=== PATIENT | male | born 1970 | race Caucasian/White ===

== ENCOUNTER → 2024-07-04 10:17 | Outpatient (REF) | payer SELFPAY | LOC: HWRAD 10:17 | PROVIDERS: ATTENDING PHYSICIAN Internal Medicine | DX: E78.2 Mixed hyperlipidemia (principal) | CPT/HCPCS: 75571 ==

== ENCOUNTER → 2024-07-05 08:05 | Outpatient (REF) | payer OTHER, SELFPAY | LOC: RAD 08:05 | PROVIDERS: ATTENDING PHYSICIAN Internal Medicine | DX: E78.2 Mixed hyperlipidemia (principal); R16.1 Splenomegaly, not elsewhere classified | CPT/HCPCS: 76700 ==

== ENCOUNTER 2024-07-25 13:47 | Emergency (ER) | payer OTHER, SELFPAY ==
[2024-07-25 13:54] VITALS: BP 165/105
[2024-07-25 14:11] LABS: % Basophils 0.7 % (0-2); % Eosinophils 1.1 % (0-6); % Immature Granulocytes 0.3 % (0-0.5); % Lymphocytes 32.7 % (20.5-51.1); % Monocytes 6.6 % (1.7-9.3); % Neutrophils 58.6 % (42.2-75.2); Absolute Basophils 0.1 10^3/uL (0-0.2); Absolute Eosinophils 0.1 10^3/uL (0-0.7); Absolute Lymphocytes 2.3 10^3/uL (1.2-3.4); Absolute Monocytes 0.5 10^3/uL (0.1-0.6); Absolute Neutrophils 4.2 10^3/uL (1.4-6.5); Hematocrit 47.1 % (39.0-52.0); Hemoglobin 16.1 g/dL (13.0-18.0); Mean Corp Hgb Conc. 34.2 g/dL (33.0-37.0); Mean Corpuscular Hgb 30.5 pg (27.0-31.0); Mean Corpuscular Volume 89.2 fL (80.0-94.0); Mean Platelet Volume 9.2 fL (7.4-10.4); Nucleated Red Blood Cells % 0 % (-); Platelet Count 242 10^3/uL (130-400); Red Blood Cell Count 5.28 10^6/uL (4.70-6.10); Red Cell Dist. Width 11.9 % (11.5-14.5); White Blood Cell Count 7.1 10^3/uL (4.8-10.8)
[2024-07-25 14:32] LABS: ALT (SGPT) 31 U/L (0-50); AST (SGOT) 27 U/L (17-59); Albumin 4.7 g/dl (3.5-5.0); Alkaline Phosphatase 53 U/L (38-126); Blood Urea Nitrogen 18 mg/dl (9-20); Calcium 9.4 mg/dl (8.4-10.2); Carbon Dioxide 22 mmol/L (22-30); Chloride 106 mmol/L (98-107); Glucose 99 mg/dl (70-99); Potassium 4.6 mmol/L (3.5-5.1); Sodium 142 mmol/L (135-145); Total Bilirubin 0.7 mg/dl (0.2-1.3); Total Protein 7.2 g/dl (6.3-8.2); eGFR > 60.00
[2024-07-25 14:34] LABS: Troponin I < 0.012 ng/ml
[2024-07-25 15:39] VITALS: BMI 34.8
[2024-07-25 15:40] VITALS: BP 150/95
[2024-07-25 16:00] VITALS: BP 125/98
[2024-07-25 17:00] VITALS: BP 138/101
[2024-07-25 18:00] VITALS: BP 122/81
[2024-07-25 18:03] LABS: Troponin I < 0.012 ng/ml
--- NOTE | 2024-07-25 18:28 | ED.GENMED ---
History of Present Illness
General
Chief Complaint: Chest Pain
Source: patient
Exam Limitations: none
Time Seen by Provider: 07/25/24 15:54
Nursing documentation reviewed up to this point in time: agreed with
History of Present Illness
History of Present Illness:
54-year-old male past medical history of asthma presenting to the emergency department today with concerns of an episode of chest pain earlier today he was at work while standing up felt lightheaded and his legs were heavy lasted for a few minutes
did improve since has been having some intermittent chest pain over the past few months as well. Did see cardiology and had a calcium score test that showed some plaque. Otherwise he is currently without significant symptoms. Denies any shortness
of breath nausea vomiting or diaphoresis. Denies any exertional component.
Past History
Past History
ED Past Medical History: Asthma
ED Past Surgical History: Orthopedic
Social History
Tobacco: Non-smoker
Alcohol: None
Drug: None
Personal:
Living: with family
Employment: Employed
Family History
Family History: Other (n/c)
Review of Systems
Review of Systems
Allergies reviewed?: Yes
All Other Systems: ROS reviewed and negative except as documented in HPI and ROS
Phy Exam
Physical Exam
Physical Exam:
GENERAL: Alert , in no apparent distress
EYE: pupils equal and reactive
NECK: Supple, no significant adenopathy.
ENT: o/p clr, mmm.
CARDIAC: Regular rate and rhythm .
LUNGS: Clear breath sounds bilaterally, no acute respiratory distress, no wheezes/rales/rhonchi
ABDOMEN: Soft, without focal tenderness, no r/g, no cvat
NEUROLOGICAL: Alert and oriented, no focal neuro deficits
SKIN: Warm and dry, skin intact.
MUSCULOSKELETAL: No edema, well perfused.
PSYCH: Normal and appropriate interaction.
Scores
Heart Score for Chest Pain Patients
STEMI patient?: No
History: Slightly or Non-Suspicious
ECG: Normal
Age: >45 - <65 years
Risk Factors: 1 or 2 Risk Factors
Troponin: </= Normal Limit
Heart Score for Chest Pain Patients: 2
Heart Score Risk: 2.5% MACE over next 6 weeks
Course
Orders/Labs/Results
Orders:
Orders
07/25/24 13:47
Electrocardiogram (*1) Urgent
Reason for Study: Chest Pain
EKG- Treatment ONCE
07/25/24 14:02
Complete Blood Count/With Diff Urgent
Comprehensive Metabolic Panel Urgent
Troponin I Urgent
07/25/24 16:04
Chest [CR Chest - 2 Views ] Urgent
Comment:
Reason For Exam: cp
07/25/24 16:50
EKG [Electrocardiogram (*1)] Urgent
Reason for Study: Chest Pain
EKG- Treatment ONCE
07/25/24 17:17
Troponin I Urgent
07/25/24 14:02
07/25/24 14:02
Vital Signs
Initial and Last Documented VS:
Initial Vital Signs
Temp Pulse Resp Pulse Ox
97.8 F 72 18 99
07/25/24 13:53 07/25/24 13:53 07/25/24 13:53 07/25/24 13:53
Last Documented Vital Signs
Temp Pulse Resp BP Pulse Ox
97.8 F 56 15 117/80 98
07/25/24 13:53 07/25/24 18:14 07/25/24 18:14 07/25/24 18:47 07/25/24 18:14
MDM/Problems Addressed
MDM/Problems Addressed:
54-year-old male presenting to the emergency department today with concerns of central chest pain has been intermittent over the past few months but also was present this morning also feels lightheaded and legs heavy. Blood pressure slightly
elevated upon arrival but without specific treatment. Initial EKG without acute abnormalities labs unremarkable troponin negative. Repeated troponin and EKG at 3 hours also normal. Chest x-ray without acute abnormalities. Patient without any
signs of acute abnormality or heart attack. Patient advised her close outpatient follow-up with cardiology. Return precautions given.
*Critical Care Note
Total Time (30-74mins, 75-104mins- exclusive of procedures): Not Applicable
ED Attending Note
-
Portions of this chart may have been created with voice recognition software.� Occasional wrong word or��sound alike� substitutions may have occurred due to the inherent limitations of voice recognition software.
Discharge Plan
Departure
Patient Disposition: Home (Routine Discharge)
Date of Disposition: 07/25/24
Time of Disposition: 18:28
Patient with high blood pressure during this ER visit?: No
Condition: Good
Covid-19: Not Applicable
Discharge Problem:
Chest pain
Instructions: Chest Pain CBC Follow Up
Prescriptions:
No Action
ipratropium-albuterol 3 ML solution for nebulization
3 ml inhalation R Q6HPRN PRN (Reason: sob)
hydrocodone-homatropine [Hycodan (with homatropine)] 5 ML syrup
5 ml PO Q6HPRN PRN (Reason: cough)
Patient Comments:
12/12/2020: last filled 12/11/20, 280ml for 14 days from [facility]
colchicine 0.6 MG tablet
0.6 mg PO DAILY
aspirin 81 MG tablet,chewable
81 mg PO DAILY
doxycycline hyclate 100 MG capsule
100 mg PO Q12H Qty: 6 0RF
benzonatate 100 MG capsule
200 mg PO TID Qty: 15 1RF
melatonin 5 MG tablet
5 mg PO HS 0RF
prednisone 10 MG tablet
10 mg PO .TAPER Qty: 20 0RF
Rx Instructions:
Take 40mg daily x2days, 30mg daily x2days,
20mg daily x2days, 10mg daily x2days.
Referrals:
Macario Sainz MD [Family Provider] -
Activity Restrictions/Additional Instructions:
You came to the emergency department with concerns of chest pain dizziness. Here your reassuring assessment with 2 negative troponins 2 normal EKGs and normal labs. Please follow closely with your end matcher. Return to the emergency department
any worsening, new or concerning symptoms.
Interventions
Interventions:
*Risk Screen - Suicide Last Done: 07/25/24 13:54
*General Assessment Last Done: 07/25/24 15:39
*Neglect/Abuse Screening Last Done: 07/25/24 13:54
ED- Fall Risk Assessment Last Done: 07/25/24 15:39
*ED COVID-19 Vaccine History Last Done: 07/25/24 15:39
*Nursing Disposition Last Done: 07/25/24 18:54
ED- Cardiac Assessment Last Done: 07/25/24 15:39
Discharge Date and Time
Discharge Date/Time: 07/25/24 18:54
Print Language: LATVIAN
[2024-07-25 18:47] VITALS: BP 117/80
== END 2024-07-25 18:54 | disposition home or self-care (01) ==
LOC: EMR 13:47
PROVIDERS: Physician Assistant; Student in an Organized Health Care Education/Training Program; EMERGENCY PHYSICIAN Emergency Medicine; FAMILY PHYSICIAN Internal Medicine
DX: R07.89 Other chest pain (principal); J45.909 Unspecified asthma, uncomplicated
CPT/HCPCS: 99283; 71046; 80053; 84484; 85025; 93005

== ENCOUNTER → 2024-10-28 08:15 | Outpatient (REF) | payer OTHER, SELFPAY | LOC: HWRCS 08:15 | PROVIDERS: ATTENDING PHYSICIAN Student in an Organized Health Care Education/Training Program; FAMILY PHYSICIAN Internal Medicine | DX: R07.89 Other chest pain (principal) | CPT/HCPCS: 78452; 93017; A9500 ==

== ENCOUNTER → 2024-11-14 13:55 | Outpatient (REF) | payer OTHER, SELFPAY | LOC: HWRCS 13:55 | PROVIDERS: ATTENDING PHYSICIAN Student in an Organized Health Care Education/Training Program; FAMILY PHYSICIAN Internal Medicine | DX: R07.89 Other chest pain (principal) | CPT/HCPCS: 93306 ==

== ENCOUNTER 2025-05-03 06:06 | Day surgery (SDC) | payer OTHER, SELFPAY ==
[2025-04-21 11:25] LABS: Hematocrit 46.5 % (39.0-52.0); Hemoglobin 16.0 g/dL (13.0-18.0); Mean Corp Hgb Conc. 34.4 g/dL (33.0-37.0); Mean Corpuscular Volume 89.6 fL (80.0-94.0); Platelet Count 280 10^3/uL (130-400); Red Cell Dist. Width 12.2 % (11.5-14.5)
[2025-04-21 11:45] LABS: ALT (SGPT) 28 U/L (0-50); AST (SGOT) 20 U/L (17-59); Albumin 4.6 g/dl (3.5-5.0); Alkaline Phosphatase 51 U/L (38-126); Blood Urea Nitrogen 25 mg/dl (9-20); Calcium 9.8 mg/dl (8.4-10.2); Carbon Dioxide 26 mmol/L (22-30); Chloride 104 mmol/L (98-107); Glucose 88 mg/dl (70-99); Potassium 5.1 mmol/L (3.5-5.1); Sodium 137 mmol/L (135-145); Total Protein 7.1 g/dl (6.3-8.2); eGFR > 60.00
[2025-04-21 13:57] VITALS: BMI 30.8
[2025-05-03] VITALS (11 sets, daily range): BP systolic 113–142; BP diastolic 64–99; BMI 30.8
[2025-05-03] MEDS: METHOCARBAMOL 1500 MG PO (08:57)
[2025-05-03] MEDS: LYRICA 150 MG PO (08:57)
[2025-05-03] MEDS: TYLENOL 1000 MG PO (08:57)
[2025-05-03] MEDS: NORMOSOL-R/PLASMALYTE-A 1000 IV (08:58)
[2025-05-03] MEDS: CELEBREX 200 MG PO (08:58)
== END 2025-05-03 13:45 | disposition home or self-care (01) ==
LOC: SDS 06:06
PROVIDERS: ATTENDING PHYSICIAN Orthopaedic Surgery Orthopaedic Surgery of the Spine; FAMILY PHYSICIAN Internal Medicine
DX: M48.02 Spinal stenosis, cervical region (principal)
CPT/HCPCS: 22554; 22551; 22552; 22853; 20930; C1831; 36415; 72020; 80053; 85027; 86850; 86900; 86901; 87070; 93005; C1713